=== PATIENT | female | born 1975 | race African-American/Black ===

== ENCOUNTER 2017-05-15 09:35 | Emergency (ER) | payer SELFPAY ==
[~2017-05-15] VITALS: Ht 157.5 cm; Wt 79.4 kg
[~2017-05-15 09:35] MED LIST: AMLO5TAB2 PO; HYDR12.5 PO
--- NOTE | 2017-05-15 09:40 | NUR ---
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 WAITING FOR MD CRUM
[2017-05-15 10:05] LABS: APPEARANCE,URINE Cloudy (CLEAR); BILIRUBIN,URINE Negative (NEGATIVE); BLOOD, URINE Large Ery/uL (NEGATIVE); COLOR,URINE Red (YELLOW); KETONES,URINE Negative (NEGATIVE); LEUKOCYTE ESTERASE ,URINE Negative (NEGATIVE); NITRITE, URINE Negative (NEGATIVE); PROTEIN,URINE >=300 mg/dl (NEGATIVE); UGLUCOSE Negative (NEGATIVE); UROBILINOGEN,URINE 0.2 EU/dL (0.2)
[2017-05-15 10:10] LABS: BACTERIA,URINE None seen /HPF (None Seen); RBC,URINE TOO NUMEROUS TO COUN /HPF (0-2); SQUAMOUS EPITHELIAL CELL,UR Few /HPF (None Seen); WBC,URINE 0-3 /HPF (0-3)
--- NOTE | 2017-05-15 10:10 | NUR ---
NEW IV STARTED ON LAC, 20 G, BLOOD DRAWN AND SENT TO LAB.
[2017-05-15] MEDS ORDERED: MORPHINE SULFATE INJ 2 MG/ML DISP.SYRIN ONE (10:15)
[2017-05-15] MEDS ORDERED: MORPHINE SULFATE INJ 4 MG/ML DISP.SYRIN ONE (10:15)
[2017-05-15 10:19] LABS: BASOPHILS % (AUTO) 0.2 % (0.0-2.0); EOSINOPHILS # (AUTO) 0.4 /CMM (0.0-0.7); EOSINOPHILS % (AUTO) 5.5 % (0.0-6.0); HEMATOCRIT 26 % (33-45); HEMOGLOBIN 8.9 g/dL (11.5-14.8); LYMPHOCYTES % (AUTO) 25.4 % (20.0-44.0); MEAN CORPUSCULAR HEMOGLOBIN 25 PG (26.0-33.0); MEAN CORPUSCULAR HGB CONC 34 g/dl (31.0-36.0); MEAN CORPUSCULAR VOLUME 75 fL (82-100); MONOCYTES # (AUTO) 1.1 /CMM (0.1-1.30); MONOCYTES % (AUTO) 13.3 % (2.0-12.0); NEUTROPHILS # (AUTO) 4.6 /CMM (1.8-8.9); NEUTROPHILS % (AUTO) 55.6 % (43.0-81.0); PLATELET COUNT (AUTO) 272 /CMM (150-450); RDW COEFFICIENT OF VARIATION 17.4 (11.5-15.0); RED BLOOD CELL COUNT(AUTO) 3.49 MIL/uL (4.0-5.2); WHITE BLOOD COUNT (AUTO) 8.1 K/uL (4.3-11.0)
[2017-05-15 10:27] LABS: CALCIUM, SERUM 8.4 mg/dL (8.5-10.1); CREATININE 0.8 mg/dL (0.6-1.3); POTASSIUM 3.6 mmol/L (3.5-5.1)
[2017-05-15] MEDS ORDERED: IV NS 0.9% 1,000 ML BAG IV ONE (10:30)
[2017-05-15] MEDS ORDERED: MORPHINE SULFATE INJ 2 MG/ML DISP.SYRIN IV ONE (10:30)
[2017-05-15 10:32] LABS: ALBUMIN 3.1 g/dL (3.4-5.0); BILIRUBIN,DIRECT 0.1 mg/dL (0.0-0.2); BILIRUBIN,TOTAL 0.4 mg/dL (0.2-1.0); TOTAL PROTEIN, SERUM 8.1 g/dL (6.4-8.2)
[2017-05-15 12:56] VITALS: BP 145/88
--- NOTE | 2017-05-15 12:57 | NUR ---
Patient discharged to home in stable condition. Written and verbal after care instructions given. Patient verbalizes understanding of instruction.IV removed. Catheter intact and site benign. Pressure and 4x4 applied to site. No bleeding noted. Prescription given.
== END 2017-05-15 13:00 | disposition home or self-care (01) ==
LOC: ER 09:36
DX: R10.30 Lower abdominal pain, unspecified (principal); D25.9 Leiomyoma of uterus, unspecified; I10 Essential (primary) hypertension; K80.20 Calculus of gallbladder without cholecystitis without obstruction
CPT/HCPCS: 36415; 74176; 76856; 80048; 80076; 81001; 84703; 85025; 87086; 96361; 96374; 99285; A4606; J2270 ×2; J7030; Z7610; 81000-TC

== ENCOUNTER 2017-08-09 22:29 | Emergency (ER) | payer SELFPAY ==
[~2017-08-09] VITALS: Ht 157.5 cm; Wt 77.1 kg
[~2017-08-09 22:29] MED LIST changes: -AMLO5TAB2 PO; +AMLO5TAB7 PO
--- NOTE | 2017-08-09 22:45 | NUR ---
TO BED 11 AMBULATORY C/O L SIDED CHEST PAIN RADIATING TO BACK SINCE 1000, SOB SINCE THIS EVENING. PT AAOX4 NO ACUTE DISTRESS NOTED, RESP EVEN AND UNLABORED. SKIM HOT TO TOUCH, NONDIAPHORETIC. PLACE PT ON CARDIAC MONITORING, CONTINUOUS POX. PENDING ER MD CRUM.
--- NOTE | 2017-08-09 22:50 | NUR ---
INDIGO MILLER AT [facility] TO RADAMES PT WITH ORDERS RECEIVED. WILL CARRY OUT ORDERS.
[2017-08-09] MEDS ORDERED: ACETAMINOPHEN 325 MG TABLET PO ONE (23:00)
[2017-08-09] MEDS ORDERED: KETOROLAC TROMETHAMINE INJ 30 MG/ML VIAL IV ONE (23:00)
[2017-08-09] MEDS ORDERED: ACETAMINOPHEN ES 500 MG TABLET ONE (23:11)
[2017-08-09 23:34] LABS: EOSINOPHILS % (AUTO) 1.2 % (0.0-6.0); HEMATOCRIT 26 % (33-45); HEMOGLOBIN 8.1 g/dL (11.5-14.8); LYMPHOCYTES # (AUTO) 1.4 /CMM (0.8-4.8); LYMPHOCYTES % (AUTO) 12.4 % (20.0-44.0); MEAN CORPUSCULAR HGB CONC 32 g/dl (31.0-36.0); MEAN CORPUSCULAR VOLUME 76 fL (82-100); MONOCYTES # (AUTO) 1.1 /CMM (0.1-1.30); MONOCYTES % (AUTO) 9.7 % (2.0-12.0); NEUTROPHILS # (AUTO) 8.4 /CMM (1.8-8.9); NEUTROPHILS % (AUTO) 76.7 % (43.0-81.0); PLATELET COUNT (AUTO) 343 /CMM (150-450); RED BLOOD CELL COUNT(AUTO) 3.38 MIL/uL (4.0-5.2)
[2017-08-09 23:45] LABS: CALCIUM, SERUM 8.3 mg/dL (8.5-10.1); CARBON DIOXIDE 24 mmol/L (21-32); CHLORIDE 104 mmol/L (98-107); CREATININE 0.8 mg/dL (0.6-1.3); GLUCOSE 107 mg/dL (74-106); POTASSIUM 3.4 mmol/L (3.5-5.1); SODIUM SERUM 140 mmol/L (136-145); UREA NITROGEN, BLOOD 8 mg/dL (7-18)
--- NOTE | 2017-08-09 23:48 | NUR ---
PT TO GO TO ROOM 306-1
[2017-08-09 23:54] LABS: TROPONIN I < 0.017 ng/mL (0.00-0.056)
--- NOTE | 2017-08-10 00:39 | NUR ---
IV removed. Catheter intact and site benign. Pressure and 4x4 applied to site. No bleeding noted. Patient discharged to home in stable condition. Written and verbal after care instructions given. Patient verbalizes understanding of instruction. ambulatory with a steady gait noted. pt aaox4 no acute distress noted, resp even and unlabored.
[2017-08-10 00:40] VITALS: BP 132/59
== END 2017-08-10 00:40 | disposition home or self-care (01) ==
LOC: ER 22:32
DX: J18.9 Pneumonia, unspecified organism (principal); I10 Essential (primary) hypertension; Z98.890 Other specified postprocedural states
CPT/HCPCS: 36415; 71045-TC; 80048-TC; 83605-TC; 84484-TC; 85025-TC; 85730-TC; 87040-TC; A4606; Z7610

== ENCOUNTER 2019-04-29 12:26 | Emergency (ER) | payer SELFPAY ==
[~2019-04-29] VITALS: Ht 157.5 cm; Wt 96.6 kg
[~2019-04-29 12:26] MED LIST changes: -AMLO5TAB7 PO; +AMLO5TAB9 PO
--- NOTE | 2019-04-29 12:35 | NUR ---
vaginal bleeding started yesterday, menstruation started same day, noted heavy bleeding. Patient a/ox4, breathing even and unlabored, no sob noted, needs attended. Kept comfortable.
[2019-04-29] MEDS ORDERED: MORPHINE SULFATE INJ 2 MG/ML DISP.SYRIN IV ONE (13:30)
[2019-04-29] MEDS ORDERED: ONDANSETRON HCL/PF 4 MG/2 ML VIAL IVP ONE (13:30)
[2019-04-29] MEDS ORDERED: IV NS 0.9% 1,000 ML BAG IV ONE (13:30)
--- NOTE | 2019-04-29 13:30 | NUR ---
US tech at bedside.
[2019-04-29 13:39] LABS: BASOPHILS % (AUTO) 0.4 % (0.0-2.0); EOSINOPHILS % (AUTO) 6.1 % (0.0-6.0); HEMATOCRIT 28 % (33-45); HEMOGLOBIN 8.6 g/dL (11.5-14.8); LYMPHOCYTES # (AUTO) 2.8 /CMM (0.8-4.8); LYMPHOCYTES % (AUTO) 30.2 % (20.0-44.0); MEAN CORPUSCULAR HGB CONC 31 g/dl (31.0-36.0); MEAN CORPUSCULAR VOLUME 73 fL (82-100); MONOCYTES % (AUTO) 11.3 % (2.0-12.0); NEUTROPHILS # (AUTO) 4.8 /CMM (1.8-8.9); PLATELET COUNT (AUTO) 322 /CMM (150-450); RED BLOOD CELL COUNT(AUTO) 3.83 MIL/uL (4.0-5.2); WHITE BLOOD COUNT (AUTO) 9.3 K/uL (4.3-11.0)
[2019-04-29] MEDS ORDERED: MORPHINE SULFATE INJ 4 MG/ML DISP.SYRIN ONE (13:41)
[2019-04-29] MEDS ORDERED: ONDANSETRON HCL/PF 4 MG/2 ML VIAL ONE (13:41)
[2019-04-29 13:43] LABS: APPEARANCE,URINE Slightly Cloudy (CLEAR); BILIRUBIN,URINE Negative (NEGATIVE); BLOOD, URINE Moderate Ery/uL (NEGATIVE); COLOR,URINE Yellow (YELLOW); KETONES,URINE Negative (NEGATIVE); LEUKOCYTE ESTERASE ,URINE Negative (NEGATIVE); NITRITE, URINE Negative (NEGATIVE); PROTEIN,URINE 30 mg/dl (NEGATIVE); UGLUCOSE Negative (NEGATIVE); UROBILINOGEN,URINE 0.2 EU/dL (0.2)
[2019-04-29 13:48] LABS: CALCIUM, SERUM 8.9 mg/dL (8.5-10.1); CREATININE 0.8 mg/dL (0.6-1.3)
[2019-04-29 14:22] LABS: BACTERIA,URINE Few /HPF (None Seen); SQUAMOUS EPITHELIAL CELL,UR Few /HPF (None Seen)
[2019-04-29 14:23] LABS: ALBUMIN 3.5 g/dL (3.4-5.0); BILIRUBIN,DIRECT 0.1 mg/dL (0.0-0.2); BILIRUBIN,TOTAL 0.2 mg/dL (0.2-1.0); TOTAL PROTEIN, SERUM 8.7 g/dL (6.4-8.2)
[2019-04-29] MEDS ORDERED: hydrALAZINE HCL IV 20 MG VIAL IV ONE (14:30)
[2019-04-29] MEDS ORDERED: POTASSIUM CHLORIDE 20 MEQ TAB.PRT.SR PO ONE ×2 (14:30→14:31)
[2019-04-29] MEDS ORDERED: hydrALAZINE HCL IV 20 MG VIAL ONE (14:31)
[2019-04-29 15:36] VITALS: BP 169/86
--- NOTE | 2019-04-29 15:36 | NUR ---
IV removed. Catheter intact and site benign. Pressure and 4x4 applied to site. No bleeding noted.Patient discharged to home in stable condition. Written and verbal after care instructions given. Patient verbalizes understanding of instruction.
== END 2019-04-29 15:37 | disposition home or self-care (01) ==
LOC: ER 12:29
DX: D25.9 Leiomyoma of uterus, unspecified (principal); I10 Essential (primary) hypertension; Z98.890 Other specified postprocedural states; Z79.899 Other long term (current) drug therapy
CPT/HCPCS: 36415; 76856; 80048; 80076; 81001; 83735; 84703; 85025; 85730; 96374; 96375; 99284; J0360; J2270; J2405; J7030; 81000-TC

== ENCOUNTER 2020-02-07 00:16 | Inpatient (IN) | payer SELFPAY ==
[~2020-02-07] VITALS: Ht 162.6 cm; Wt 94.3 kg
[~2020-02-07 00:16] MED LIST changes: +AMLO-212 PO; -AMLO5TAB9 PO
--- NOTE | 2020-02-07 00:18 | NUR ---
PT C/O INTERMITTENT NONRADIATING R SIDED CP WITH SOB, & HEADACHE X2 DAYS. PT PLACED ON MATERNAL CHILD NURSE AND PULSE OX. VSS. MILLER AT BEDSIDE FOR EVAL, AWAITING ORDERS.
[2020-02-07] MEDS ORDERED: KETOROLAC TROMETHAMINE 15 MG/ML VIAL ONE (00:58)
[2020-02-07] MEDS ORDERED: KETOROLAC TROMETHAMINE INJ 30 MG/ML VIAL IV ONE (01:00)
[2020-02-07] MEDS ORDERED: CLONIDINE HCL 0.1 MG TABLET PO ONE (01:00)
--- NOTE | 2020-02-07 01:01 | NUR ---
CALLED LAB REGARDING COVID SWAB.
[2020-02-07 01:08] LABS: BASOPHILS % (AUTO) 0.8 % (0.0-2.0); EOSINOPHILS % (AUTO) 4.2 % (0.0-6.0); HEMOGLOBIN 8.8 g/dL (11.5-14.8); WHITE BLOOD COUNT (AUTO) 5.1 K/uL (4.3-11.0)
--- NOTE | 2020-02-07 01:13 | NUR ---
COVID SWAB SENT TO LAB
--- NOTE | 2020-02-07 01:13 | NUR ---
BLOOD COLLECTED AND SENT TO LAB
[2020-02-07 01:14] LABS: HEMATOCRIT 29 % (33-45); LYMPHOCYTES # (AUTO) 2.4 /CMM (0.8-4.8); LYMPHOCYTES % (AUTO) 46.5 % (20.0-44.0); MEAN CORPUSCULAR HGB CONC 31 g/dl (31.0-36.0); MEAN CORPUSCULAR VOLUME 74 fL (82-100); MONOCYTES # (AUTO) 0.8 /CMM (0.1-1.30); MONOCYTES % (AUTO) 16.6 % (2.0-12.0); NEUTROPHILS # (AUTO) 1.6 /CMM (1.8-8.9); NEUTROPHILS % (AUTO) 31.9 % (43.0-81.0); PLATELET COUNT (AUTO) 294 /CMM (150-450)
[2020-02-07] MEDS ORDERED: CLONIDINE HCL 0.1 MG TABLET ONE (01:22)
[2020-02-07 01:23] LABS: CALCIUM, SERUM 8.6 mg/dL (8.5-10.1); CREATININE 0.8 mg/dL (0.6-1.3); POTASSIUM 3.2 mmol/L (3.5-5.1)
[2020-02-07 01:34] LABS: D-DIMER 1.24 mg/L(FEU (0.17-0.50)
[2020-02-07 01:47] LABS: LYMPHOCYTES % (MANUAL) 50 % (16-48); MONOCYTES % (MANUAL) 12 % (0-11.0); NEUTROPHILS % (MANUAL) 38 (42-76)
--- NOTE | 2020-02-07 01:56 | NUR ---
Call from lab. rapid covid positive.
--- NOTE | 2020-02-07 02:51 | NUR ---
BUS GIRL AT BEDSIDE
[2020-02-07 03:07] LABS: CALCIUM, SERUM 8.7 mg/dL (8.5-10.1); CREATININE 0.9 mg/dL (0.6-1.3); POTASSIUM 3.4 mmol/L (3.5-5.1)
[2020-02-07 03:13] LABS: ALBUMIN 3.7 g/dL (3.4-5.0); BILIRUBIN,TOTAL 0.1 mg/dL (0.2-1.0)
[2020-02-07] MEDS ORDERED: IOHEXOL-350 100 ML VIAL IV ONE ×2 (03:25→03:41)
[2020-02-07] MEDS ORDERED: IV NS 0.9% 250 ML IV ONE (03:25)
[2020-02-07 03:41] LABS: C-REACTIVE PROTEIN 0.6 mg/dL (0.0-0.9)
--- NOTE | 2020-02-07 03:59 | NUR ---
PT PROVIDED WITH BLANKETS. VSS. ON PHONE WITH FAMILY.
[2020-02-07] MEDS ORDERED: ONDANSETRON HCL/PF 4 MG/2 ML VIAL IVP PRN (05:00)
[2020-02-07] MEDS ORDERED: ACETAMINOPHEN 325 MG TABLET PO PRN (05:00)
[2020-02-07 05:45] LABS: THYROID STIMULATING HORMONE 1.811 uIU/mL (0.358-3.74)
--- NOTE | 2020-02-07 06:50 | NUR ---
PT PROVIDED WITH MORE BLAKETS. VSS.
[2020-02-07] MEDS: hydrALAZINE HCL 50 MG TABLET PO SCH ×3 (09:23→17:00)
[2020-02-07] MEDS: HYDROCHLOROTHIAZIDE 25 MG TABLET PO SCH (09:24)
[2020-02-07] MEDS: AMLODIPINE BESYLATE 5 MG TABLET PO SCH (09:24)
[2020-02-07] MEDS: AZITHROMYCIN 250 MG TABLET PO SCH (09:25)
[2020-02-07] MEDS: ENOXAPARIN SODIUM 40 MG/0.4 ML DISP.SYRIN SQ SCH (09:29)
[2020-02-07] MEDS: ASPIRIN 325 MG TABLET PO SCH (10:00)
[2020-02-07] MEDS: POTASSIUM CHLORIDE 20 MEQ TAB.PRT.SR PO SCH ×2 (11:30→12:30)
--- NOTE | 2020-02-07 17:18 | NUR ---
room 209-2
--- NOTE | 2020-02-07 18:56 | NUR ---
AFTER SHIFT REPORT PER CHARGE NURSE.
--- NOTE | 2020-02-07 19:30 | NUR ---
TRIED TO CALL TO GIVE REPORT, NURSE IS BUSY WITH PATIENT.
--- NOTE | 2020-02-07 19:39 | NUR ---
REPORT GIVEN TORSTEN LUGO FOR HIEN.
[2020-02-07 19:52] VITALS: BP 154/84
--- NOTE | 2020-02-07 19:57 | NUR ---
TAKEN UP TO ASSIGNED ROOM FOR HIEN.
[2020-02-07 20:00] VITALS: BP 154/84
--- NOTE | 2020-02-07 20:00 | NUR ---
RN ADMITTING NOTES PATIENT RECEIVED FROM ER VIA GURNEY ACCOMPANIED BY ER STAFF. PATIENT A/O X 4, ABLE TO AMBULATE AND MAKE NEEDS KNOWN. STABLE ON RA WITH BREATHING EVEN AND UNLABORED, NO SOB NOTED. NO SIGNS OF ACUTE DISTRESS. NO COMPLAINTS OF PAIN OR DISCOMFORT AT THE MOMENT. IV LOCATED ON R AC #18 PATENT AND INTACT. TELE MONITORS PLACED. SKIN ASSESSMENT DONE. VITALS TAKEN. BELONGINGS ACCOUNTED FOR. PATIENT ORIENTED TO ROOM AND STAFF. SAFETY PRECAUTIONS IN PLACE WITH BED IN LOWEST POSITION, CALL LIGHT WITHIN REACH, BREAKS ON, SIDE RAILS UP.
[2020-02-08] VITALS: BP 148/78
[2020-02-08 04:00] VITALS: BP_SYST 134; BP_DIAS 72; BP_DIAS 82
--- NOTE | 2020-02-08 07:07 | NUR ---
RN CLOSING NOTES PATIENT IN BED RESTING A/O X 4. STABLE ON RA WITH BREATHING EVEN AND UNLABORED, NO SOB NOTED. NO SIGNS OF ACUTE DISTRESS. NO COMPLAINTS OF PAIN OR DISCOMFORT. TELE MONITOR READING SB WITH 1ST DEGREE AV BLOCK. IV LOCATED ON R AC #18 PATENT AND INTACT. SAFETY PRECAUTIONS IN PLACE WITH BED IN LOWEST POSITION, CALL LIGHT WITHIN REACH, BREAKS ON, SIDE RAILS UP. ALL NEEDS ATTENDED TO. WILL ENDORSE TO ONCOMING SHIFT ABOUT HIEN.
--- NOTE | 2020-02-08 07:35 | NUR ---
TELE/RN OPENING NOTES RECEIVED PATIENT ON AWAKE ALERT AND ORIENTED X4. PATIENT IN NO APPARENT RESPIRATORY DISTRESS NOTED. TELE MONITOR READING SINUS RHYTHM 60 BPM WITH PAC 1ST DEGREE. WILL CONTINUE TO MONITOR.
[2020-02-08 08:00] VITALS: BP 140/63
[2020-02-08 08:24] LABS: BASOPHILS % (AUTO) 0.3 % (0.0-2.0); EOSINOPHILS % (AUTO) 5.2 % (0.0-6.0); HEMATOCRIT 28 % (33-45); HEMOGLOBIN 8.7 g/dL (11.5-14.8); LYMPHOCYTES # (AUTO) 1.8 /CMM (0.8-4.8); LYMPHOCYTES % (AUTO) 47.1 % (20.0-44.0); MEAN CORPUSCULAR HGB CONC 31 g/dl (31.0-36.0); MEAN CORPUSCULAR VOLUME 73 fL (82-100); MONOCYTES # (AUTO) 0.7 /CMM (0.1-1.30); MONOCYTES % (AUTO) 17.5 % (2.0-12.0); NEUTROPHILS # (AUTO) 1.1 /CMM (1.8-8.9); NEUTROPHILS % (AUTO) 29.9 % (43.0-81.0); PLATELET COUNT (AUTO) 261 /CMM (150-450); RED BLOOD CELL COUNT(AUTO) 3.87 MIL/uL (4.0-5.2); WHITE BLOOD COUNT (AUTO) 3.8 K/uL (4.3-11.0)
[2020-02-08 08:35] LABS: CALCIUM, SERUM 8.4 mg/dL (8.5-10.1); CREATININE 0.8 mg/dL (0.6-1.3); POTASSIUM 3.1 mmol/L (3.5-5.1)
[2020-02-08] MEDS: hydrALAZINE HCL 50 MG TABLET PO SCH ×3 (10:15→17:00)
[2020-02-08] MEDS: HYDROCHLOROTHIAZIDE 25 MG TABLET PO SCH (10:15)
[2020-02-08] MEDS: ASPIRIN 325 MG TABLET PO SCH (10:16)
[2020-02-08] MEDS: AMLODIPINE BESYLATE 5 MG TABLET PO SCH (10:16)
[2020-02-08] MEDS: ENOXAPARIN SODIUM 40 MG/0.4 ML DISP.SYRIN SQ SCH (10:18)
[2020-02-08] MEDS: AZITHROMYCIN 250 MG TABLET PO SCH (10:19)
[2020-02-08 11:01] LABS: EOSINOPHILS % (MANUAL) 2 % (0-4); LYMPHOCYTES % (MANUAL) 50 % (16-48); MONOCYTES % (MANUAL) 14 % (0-11.0); NEUTROPHILS % (MANUAL) 34 (42-76)
[2020-02-08] MEDS ORDERED: POTASSIUM CHLORIDE 20 MEQ TAB.PRT.SR PO SCH (11:30)
[2020-02-08 17:00] VITALS: BP 140/63
--- NOTE | 2020-02-08 18:23 | NUR ---
RN NOTES PATIENT IS AWAKE ALERT AND ORIENTED X4. PATIENT IN APPARENT RESPIRATORY DISTRESS NOTED. NO COMPLAINED OF. SEEN AND EXAMINED BY MD WITH ORDERS MADE AND CARRIED OUT. PATIENT WAS GIVEN DISCHARGED INSTRUCTIONS AND PATIENT VERBALIZED UNDERSTANDING. PATIENT LEFT AT 1730 FENDER MECHANIC BY FAMILY.
== END 2020-02-08 17:30 | disposition home or self-care (01) | DRG 179 ==
LOC: ER 00:20 → OBSER 05:32 → OBSVTOIN 05:32 → TRANSITION 08:12 → TELE2 17:46
PROVIDERS: ADMIT Internal Medicine; ATTEND Internal Medicine
DX: U07.1 COVID-19 (principal); K80.20 Calculus of gallbladder without cholecystitis without obstruction; K42.9 Umbilical hernia without obstruction or gangrene; D64.9 Anemia, unspecified; I10 Essential (primary) hypertension; Z98.890 Other specified postprocedural states; Z79.899 Other long term (current) drug therapy; D25.9 Leiomyoma of uterus, unspecified; R07.89 Other chest pain
CPT/HCPCS: 36415; 71045-TC; 80048-TC; 80053-TC; 80061-TC; 82550-TC; 82728-TC; 83540-TC; 83605-TC; 83615-TC; 83880; 84443-TC; 84484-TC; 85025-TC; 85378-TC; 85385-TC; 85730-TC; 86140-TC; 87040-TC; 87081-TC; 93308-TC; C9803; G0378; J1650; J1885; J7050; Q9967

== ENCOUNTER 2021-03-30 12:37 | Emergency (ER) | payer SELFPAY ==
[~2021-03-30] VITALS: Ht 162.6 cm; Wt 81.6 kg
[2021-03-30] MEDS ORDERED: PROCHLORPERAZINE EDISYLATE 10 MG/2 ML VIAL ONE (13:26)
[2021-03-30] MEDS ORDERED: SUMATRIPTAN SUCCINATE 6 MG/0.5 ML VIAL SQ ONE ×2 (13:27→13:30)
[2021-03-30] MEDS ORDERED: AMLODIPINE BESYLATE 10 MG TABLET ONE (13:27)
[2021-03-30] MEDS ORDERED: AMLODIPINE BESYLATE 5 MG TABLET PO ONE (13:30)
[2021-03-30] MEDS ORDERED: PROCHLORPERAZINE EDISYLATE 10 MG/2 ML VIAL IM ONE (13:30)
[2021-03-30] MEDS ORDERED: HYDROCHLOROTHIAZIDE 25 MG TABLET ONE (14:12)
[2021-03-30] MEDS ORDERED: METOCLOPRAMIDE HCL 10 MG/2 ML VIAL ONE (14:24)
[2021-03-30] MEDS ORDERED: KETOROLAC TROMETHAMINE INJ 30 MG/ML VIAL ONE (14:24)
[2021-03-30] MEDS ORDERED: HYDROCHLOROTHIAZIDE 25 MG TABLET PO ONE (14:30)
[2021-03-30] MEDS ORDERED: METOCLOPRAMIDE HCL 10 MG/2 ML VIAL IM ONE (14:30)
[2021-03-30] MEDS ORDERED: KETOROLAC TROMETHAMINE INJ 30 MG/ML VIAL IM ONE (14:30)
[2021-03-30] MEDS ORDERED: CODE1CAP32 PO (15:02)
--- NOTE | 2021-03-30 15:09 | NUR ---
Patient discharged to home in stable condition. Written and verbal after care instructions given. Patient verbalizes understanding of instruction.
[2021-03-30 15:11] VITALS: BP 139/98
== END 2021-03-30 15:13 | disposition home or self-care (01) ==
LOC: ER 13:01
DX: R51.9 Headache, unspecified (principal); I10 Essential (primary) hypertension; D64.9 Anemia, unspecified; Z98.890 Other specified postprocedural states; Z79.899 Other long term (current) drug therapy
CPT/HCPCS: 70450; 96372 ×2; 99285; J0780; J1885; J2765; J3030

== ENCOUNTER 2024-08-18 12:25 | Emergency (ER) | payer OTHER ==
[~2024-08-18] VITALS: Ht 160 cm; Wt 97.5 kg
[~2024-08-18 12:25] MED LIST changes: +CODE1CAP32 PO
[2024-08-18] MEDS ORDERED: FAMOTIDINE/PF INJ 20 MG/2 ML VIAL IV ONE (13:04)
[2024-08-18] MEDS ORDERED: LIDOCAINE VISCOUS 2% UD 15 ML UDC ONE (13:04)
[2024-08-18] MEDS ORDERED: MAG HYDROX/AL HYDROX/SIMETH 30 ML UDC ONE (13:04)
[2024-08-18] MEDS: FAMOTIDINE/PF INJ 20 MG/2 ML VIAL IV ONE (13:09)
[2024-08-18] MEDS: LIDOCAINE VISCOUS 2% UD 15 ML UDC MM ONE (13:10)
[2024-08-18] MEDS: MAG HYDROX/AL HYDROX/SIMETH 30 ML UDC PO ONE (13:10)
[2024-08-18 13:11] LABS: BASOPHILS % (AUTO) 0.5 % (0.0-2.0); EOSINOPHILS # (AUTO) 0.2 K/uL (0.0-0.7); EOSINOPHILS % (AUTO) 2.8 % (0.0-6.0); HEMATOCRIT 38 % (33-45); HEMOGLOBIN 12.3 g/dL (11.5-14.8); LYMPHOCYTES % (AUTO) 30.4 % (20.0-44.0); MEAN CORPUSCULAR HEMOGLOBIN 29 PG (26.0-33.0); MEAN CORPUSCULAR HGB CONC 33 g/dl (31.0-36.0); MEAN CORPUSCULAR VOLUME 89 fL (82-100); MONOCYTES # (AUTO) 0.5 K/uL (0.1-1.30); MONOCYTES % (AUTO) 8.1 % (2.0-12.0); NEUTROPHILS # (AUTO) 3.8 K/uL (1.8-8.9); NEUTROPHILS % (AUTO) 58.2 % (43.0-81.0); PLATELET COUNT (AUTO) 243 K/uL (150-450); RED BLOOD CELL COUNT(AUTO) 4.28 MIL/uL (4.0-5.2); RED CELL DISTRIBUTION WIDTH 15.8 % (11.5-15.0); WHITE BLOOD COUNT (AUTO) 6.5 K/uL (4.3-11.0)
[2024-08-18 13:21] LABS: CALCIUM, SERUM 9.2 mg/dL (8.5-10.1); CREATININE 0.9 mg/dL (0.6-1.3); POTASSIUM 3.3 mmol/L (3.5-5.1)
[2024-08-18 13:27] LABS: ALBUMIN 3.6 g/dL (3.4-5.0); BILIRUBIN,DIRECT 0.1 mg/dL (0.0-0.2); BILIRUBIN,TOTAL 0.3 mg/dL (0.2-1.0)
[2024-08-18] MEDS ORDERED: OMEP20TA20 PO ×2 (13:57→15:08)
[2024-08-18 15:32] VITALS: BP 148/82; TEMP 98.2; O2SAT 95
== END 2024-08-18 15:33 | disposition home or self-care (01) ==
LOC: ER 12:32
DX: K80.50 Calculus of bile duct without cholangitis or cholecystitis without obstruction (principal); K80.20 Calculus of gallbladder without cholecystitis without obstruction; R16.0 Hepatomegaly, not elsewhere classified; R10.13 Epigastric pain; R42 Dizziness and giddiness; R11.0 Nausea; I10 Essential (primary) hypertension; Z79.899 Other long term (current) drug therapy
CPT/HCPCS: 99285; 96374; 76705; 85025; 80048; 83690; 80076; 36415; J1308